=== PATIENT | male | born 1965 | race Two or more races ===

== ENCOUNTER 2019-12-19 09:15 | Day surgery (SDC) | payer BC, OTHER ==
[2019-12-15 11:28] VITALS: BMI 26.4
[~2019-12-19 09:15] MED LIST: LACTATED RINGERS 1,000 ML IV SCH; LIDOCAINE 1% 20 ML VIAL (10MG/ML) FOR IV START INTRADERMA PRN
[2019-12-19 09:34] VITALS: RESP 16; TEMP 97
[2019-12-19] MEDS ORDERED: LIDOCAINE 1% INJ 10MG/ML (20 ML MDV) ONE (09:49)
[2019-12-19] MEDS ORDERED: PROPOFOL 10 MG/ML 20 ML VIAL IV ONE (09:49)
[2019-12-19] MEDS ORDERED: GLUCAGON 1 MG/ML VIAL ONE (09:49)
--- NOTE | 2019-12-19 09:55 | P.GSHP ---
History of Present Illness H&P Date: 12/19/19 Chief Complaint: GERD, history of gastric ulcer, screening colonoscopy Is a 54-year-old male who presents today for EGD colonoscopy. Patient history of GERD and peptic ulcer disease. He is also scheduled for screening colonoscopy today. Past Medical History Past Medical History: GERD/Reflux, Hypertension Additional Past Medical History / Comment(s): Past hx HTN, no longer needing rx, Hx stomach ulcer with surgery and post op anemia, hx food stuck in esophagus,recent wt loss with diarrhea History of Any Multi-Drug Resistant Organisms: None Reported Past Surgical History: Cholecystectomy, Tonsillectomy Additional Past Surgical History / Comment(s): PARTIAL GASTRECTOMY 1989 R/T ULCERS,COLONOSCOPY. EGD Past Anesthesia/Blood Transfusion Reactions: No Reported Reaction Smoking Status: Never smoker - Past Family History Father Additional Family Medical History / Comment(s): Father at the age of 56yrs. The one thing family was told was that he had had a strep infection. Mother Family Medical History: Cancer, CVA/TIA, Deep Vein Thrombosis (DVT) Additional Family Medical History / Comment(s): lung cancer Medications and Allergies Home Medications Medication Instructions Recorded Confirmed Type Ferocon 1 cap PO DAILY 09/10/17 12/15/19 History Pantoprazole Sodium [Protonix] 40 mg PO DAILY 12/15/19 12/15/19 History Sucralfate [Carafate] 1 gm PO TID 12/15/19 12/15/19 History traZODone HCL 50 mg PO HS 12/15/19 12/15/19 History Allergies Allergy/AdvReac Type Severity Reaction Status Date / Time No Known Allergies Allergy Verified 12/19/19 09:29 Surgical - Exam Vital Signs Temp Pulse Resp BP Pulse Ox 97.0 F L 69 16 142/90 96 12/19/19 09:33 12/19/19 09:33 12/19/19 09:33 12/19/19 09:33 12/19/19 09:33 - General well developed, well nourished, no distress - Eyes PERRL - ENT normal pinna - Neck no masses - Respiratory normal expansion - Cardiovascular Rhythm: regular - Abdomen Abdomen: soft, non tender Assessment and Plan Assessment: GERD, peptic ulcer disease, screening colonoscopy. We'll perform EGD and screening colonoscopy
--- NOTE | 2019-12-19 10:21 | P.OP ---
Date of Procedure: 12/19/19 Preoperative Diagnosis: Peptic ulcer disease GERD Screening colonoscopy Postoperative Diagnosis: Mild gastritis Normal colonoscopy Procedure(s) Performed: EGD Colonoscopy Anesthesia: MAC Surgeon: Dagoberto Willard Pathology: other (Stomach) Condition: stable Description of Procedure: PROCEDURE: The patient was placed on the endoscopy table in the lateral position. Digital rectal examination was performed which revealed no abnormalities. The prostate was symmetrical without nodules. Flexible colonoscope was then placed in the patient's anus and passed throughout the entire colon. The ileocecal valve was visualized. The cecum, ascending, transverse, descending and sigmoid colon were normal. The rectum was normal as well. There were no masses, polyps or diverticula noted in the entire colon. Next the gastroscope placed oropharynx and passed in the esophagus and into the stomach. Patient had a previous partial gastrectomy. The gastrojejunostomy was visualized. There is no evidence of any peptic ulcer disease. The stomach looked mildly inflamed just proximal to the gastric jejunostomy. A biopsy was performed. Scope was unretroflexed and remainder of the stomach appeared normal. There is no significant hiatal hernia. The GE junction was at 47 is. The distal esophagus year normal. The proximal esophagus appeared normal. Scope was withdrawn for patient.
[2019-12-19 10:48] VITALS: BP 142/94; PULSE 61
== END 2019-12-19 11:05 | disposition home or self-care (01) ==
LOC: ORWHC2ENDO 09:15
PROVIDERS: ATTEND Surgery
DX: K29.50 Unspecified chronic gastritis without bleeding (principal); Z12.11 Encounter for screening for malignant neoplasm of colon; Z87.11 Personal history of peptic ulcer disease; Z90.49 Acquired absence of other specified parts of digestive tract; I10 Essential (primary) hypertension; R19.7 Diarrhea, unspecified; R13.10 Dysphagia, unspecified; Z98.890 Other specified postprocedural states; Z90.3 Acquired absence of stomach [part of]; Z82.3 Family history of stroke; Z82.49 Family history of ischemic heart disease and other diseases of the circulatory system; Z80.1 Family history of malignant neoplasm of trachea, bronchus and lung; Z79.899 Other long term (current) drug therapy
CPT/HCPCS: 88305; 88342; 43239; J1610; J2001; J2704; G0121; 45378

== ENCOUNTER 2023-07-03 07:29 | Day surgery (SDC) | payer BC, OTHER ==
[2023-06-26 15:41] VITALS: BMI 27.7
[~2023-07-03 07:29] MED LIST changes: +LIDOCAINE 1% (10MG/ML) FOR IV START INTRADERMA PRN; -LIDOCAINE 1% 20 ML VIAL (10MG/ML) FOR IV START INTRADERMA PRN; +ONDANSETRON 4 MG/2 ML VIAL IVP PRN
[2023-07-03 07:46] VITALS: TEMP 97
[2023-07-03] MEDS ORDERED: PROPOFOL 10 MG/ML 20 ML VIAL IV ONE (08:21)
--- NOTE | 2023-07-03 08:42 | P.PCN ---
Date of Procedure: 07/03/23 Procedure(s) Performed: Brief history: Patient is a pleasant 58-year-old white male scheduled for an elective upper endoscopy as well as colonoscopy as a part of evaluation of GERD/intermittent nausea vomiting/change in bowel habits and rectal bleeding for the last 1 year duration. Procedure performed: Esophagogastroduodenoscopy with biopsy Colonoscopy Preoperative diagnosis: GERD/intermittent nausea vomiting Change in bowel habits and rectal bleeding Anest[place]: [facility] [place] Procedure: After informed consent was obtained from the patient was brought into the endoscopy unit and IV sedation was administered by anesthesia under continuous monitoring. Initially upper endoscopy was done. The Olympus GF 160 video endoscope was inserted inserted into the mouth and esophagus intubated without any difficulty and was gradually advanced into the stomach. There was evidence of partial gastrotomy with Billroth II anastomosis noted. The anastomosis was widely patent. The scope was advanced into the duodenum appeared normal. Biopsies were done from the duodenum to rule out celiac disease. The scope at this time was withdrawn to the gastric remnant which appeared diffusely erythematous and biopsies were done from this area. On retroflexion the cardia and fundus appeared normal. The scope was then withdrawn into the esophagus. Small hiatal hernia noted. The GE junction was located at 38 cm to the incisors. It appeared regular part there were multiple superficial mucosal rings in the mid and distal esophagus with thickened esophageal folds suspicious for eosinophilic esophagitis and biopsies were done from this area. Rest of esophagus appeared normal and the patient tolerated the procedure well. At this time the patient continued to remain sedation. Initial digital rectal examination was normal. Olympus CF 160 video colonoscope was then inserted into the rectum and gradually advanced to the cecum without any difficulty. Careful examination was performed as the scope was gradually being withdrawn. The prep was fair. The cecum, ascending colon, transverse colon, descending colon, sigmoid colon and rectum appeared normal. Retroflexion was performed in the rectum and no lesions were noted. Patient tolerated the procedure well. Impression: 1. Upper endoscopy revealed previous Billroth I gastrectomy, gastritis of the gastric remnant, small hiatal hernia and multiple superficial mucosal rings in the mid and distal esophagus suspicious for eosinophilic esophagitis status post multiple biopsies 2. Colonoscopy was within normal limits with no evidence of colorectal neoplasia Recommendations: Findings of this examination were discussed with the patient as well as his family. He was advised to follow with the biopsy results. Recommend repeat screening colonoscopy in 10 years.
[2023-07-03 08:50] VITALS: RESP 16
[2023-07-03 09:18] VITALS: BP 142/91; PULSE 66
== END 2023-07-03 09:41 | disposition home or self-care (01) ==
LOC: ORWHC2ENDO 07:29
PROVIDERS: ATTEND Internal Medicine Gastroenterology
DX: K62.5 Hemorrhage of anus and rectum (principal); K21.9 Gastro-esophageal reflux disease without esophagitis; K20.90 Esophagitis, unspecified without bleeding
CPT/HCPCS: 88305; 88312; 88342; 45378; 43239; J2704